=== PATIENT | male | born 1995 | race Hispanic/Latino ===

== ENCOUNTER → 2024-01-30 15:42 | Outpatient (REF) | payer SELFPAY | LOC: UCDH 15:42 | PROVIDERS: ATTENDING PHYSICIAN Emergency Medicine | DX: M25.562 Pain in left knee (principal) | CPT/HCPCS: 73564 ==

== ENCOUNTER 2024-10-31 23:15 | Emergency (ER) | payer OTHER, SELFPAY ==
[2024-10-31] MEDS: ADACEL 0.5 ML IM (23:45)
[2024-10-31] MEDS: NSS 1000 IV (23:45)
[2024-11-01] VITALS: BP 138/91
[2024-11-01 00:05] VITALS: BP 138/91
[2024-11-01 00:05] LABS: Hematocrit 44.2 % (39.0-52.0); Hemoglobin 15.6 g/dL (13.0-18.0); Mean Corp Hgb Conc. 35.3 g/dL (33.0-37.0); Mean Corpuscular Volume 85.8 fL (80.0-94.0); Nucleated Red Blood Cells % 0 % (-); Platelet Count 297 10^3/uL (130-400); Red Cell Dist. Width 11.5 % (11.5-14.5)
[2024-11-01 00:30] LABS: ALT (SGPT) 82 U/L (0-50); AST (SGOT) 51 U/L (17-59); Albumin 5.1 g/dl (3.5-5.0); Alkaline Phosphatase 69 U/L (38-126); Blood Urea Nitrogen 9 mg/dl (9-20); Calcium 9.4 mg/dl (8.4-10.2); Carbon Dioxide 22 mmol/L (22-30); Chloride 109 mmol/L (98-107); Glucose 145 mg/dl (70-99); Lipase 53 U/L (23-300); Potassium 4.1 mmol/L (3.5-5.1); Sodium 141 mmol/L (135-145); Total Protein 8.3 g/dl (6.3-8.2); eGFR > 60.00
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
[2024-11-01 01:43] LABS: Urine Character Clear (Clear)
[2024-11-01] MEDS: ANCEF 10 IV (01:59)
[2024-11-01 02:05] LABS: Urine Squamous Cell 0-2 /LPF (Few)
[2024-11-01 02:07] LABS: Urine Red Blood Cell None Seen /HPF (0-2); Urine White Cell 0-2 /HPF (0-5)
[2024-11-01 03:07] VITALS: BP 124/81
--- NOTE | 2024-11-01 03:11 | EDRN ---
Patient and updated on CT results and delay in sutures, understanding of situation and will continue to monitor patient, resting comfortably at this time.
[2024-11-01 04:00] VITALS: BP 118/73
[2024-11-01] MEDS: OFIRMEV 100 IV (04:07)
[2024-11-01 05:00] VITALS: BP 106/70
[2024-11-01] MEDS: ZOFRAN 4 MG IV (06:40)
[2024-11-01] MEDS: REGLAN 10 MG IV (08:25)
[2024-11-01 09:27] VITALS: BP 125/84
== END 2024-11-01 09:49 | disposition home or self-care (01) ==
LOC: EMR 23:15
PROVIDERS: EMERGENCY PHYSICIAN Emergency Medicine; FAMILY PHYSICIAN Family Medicine
DX: S02.2XXB Fracture of nasal bones, initial encounter for open fracture (principal); F10.129 Alcohol abuse with intoxication, unspecified; V89.2XXA Person injured in unspecified motor-vehicle accident, traffic, initial encounter; Y92.009 Unspecified place in unspecified non-institutional (private) residence as the place of occurrence of the external cause; Y92.410 Unspecified street and highway as the place of occurrence of the external cause; Y90.9 Presence of alcohol in blood, level not specified
CPT/HCPCS: 99291; 96374; 96375; 90471; 70450; 70486; 72125; 80053; 80306; 80307; 81003; 81015; 82077; 83690; 85025